=== PATIENT | female | born 1940 | race Two or more races ===

== ENCOUNTER 2020-01-13 14:09 | Inpatient (IN) | payer MEDICARE, OTHER ==
[~2020-01-13] VITALS: Ht 157.5 cm; Wt 56.7 kg
[2020-01-13] MEDS ORDERED: PANTOPRAZOLE 40 MG 10ML VIAL IV ONE (14:26)
[2020-01-13] MEDS ORDERED: SODIUM CHLORIDE 0.9% 1000ML 1,000 ML IV STA (14:26)
[2020-01-13] MEDS ORDERED: VANCOMYCIN 1GM/NS 250 ML 250 ML IV ONE (14:45)
[2020-01-13] MEDS ORDERED: VANCOMYCIN 1GM/NS 250 ML 250 ML ONE (15:02)
[2020-01-13 15:12] LABS: INR 1.35; PROTHROMBIN TIME 17.6 seconds (11.9-14.5)
[2020-01-13 15:25] LABS: ALBUMIN 1.7 g/dL (3.5-5.0); ALBUMIN/GLOBULIN RATIO 0.4 (0.8-2.0); ALKALINE PHOSPHATASE 144 IU/L (40-150); ANION GAP 23.2 mmol/L (8-16); BUN/CREATININE RATIO 38 (6-25); CALCIUM 9.1 mg/dL (8.4-10.2); CARBON DIOXIDE 16 mmol/L (22-29); CHLORIDE 131 mmol/L (98-107); CREATINE KINASE 222 IU/L (29-168); CREATININE, SERUM 4.34 mg/dL (0.57-1.11); EST GLOMERULAR FILTRATION RATE 10 ML/MIN (60-); GLUCOSE 164 mg/dL (74-118); MAGNESIUM 2.8 MG/DL (1.3-2.1)
[2020-01-13 15:30] LABS: ALANINE AMINOTRANSFERASE < 6 IU/L (0-55); BLOOD UREA NITROGEN 164 mg/dL (7-26); SODIUM 165 mmol/L (136-145)
[2020-01-13 15:31] LABS: POTASSIUM 5.2 mmol/L (3.5-5.1)
--- NOTE | 2020-01-13 15:39 | Diagnostic Imaging Report ---
EXAMINATION: Head CT HISTORY: Alteration of consciousness COMPARISON: None. TECHNIQUE: Helical axial images of the head were obtained. Reformatted coronal and sagittal images from the axial data. Dose modulation, iterative reconstruction, and/or weight based adjustment of the mA/kV was utilized to reduce the radiation dose to as low as reasonably achievable. Image quality: Motion/streaking artifact limits the evaluation of the skull base and posterior cranial fossa. FINDINGS: Parenchyma: 1. Scatter and severe confluent supratentorial white matter hypodensities, most likely nonspecific microvascular ischemic changes. 2. Chronic cortical infarct in the right medial occipital lobe (cuneus) and right lateral occipital parietal region. 3. Small age indeterminate, likely chronic lacunar infarcts in the bilateral thalami. 4. No mass or hemorrhage. No CT evidence of acute territorial vascular insult. Extra-axial spaces:No abnormal density. No extra-axial fluid collections Brain volume: Mild to moderate generalized brain volume loss Ventricles: No hydrocephalus or displacement. Arteries: No density suggestive of thrombus. Atherosclerotic calcification of the carotid, vertebrals and basilar arteries. Dural sinuses: No abnormal density. Foramen magnum: No mass, Chiari malformation, or basilar invagination. Sella: No obvious mass. Paranasal/mastoid sinuses: Partial opacification of the sphenoid sinuses with associated thickening/sclerotic bui, likely from chronic inflammatory process. There is also hyperpneumatization and sclerosis of the bilateral mastoid air cells, perhaps sequela from remote inflammatory process as well. Skull/Scalp: No lytic or blastic lesions. No fractures. IMPRESSION: 1. No acute intracranial hemorrhage or cortical infarcts. 2. Severe chronic microvascular ischemic changes, superimposed acute infarct cannot be excluded, if clinical concern remains consider brain MRI without and with contrast for further evaluation. 3. Chronic infarcts in the right occipital and parietal lobes. 4. Small likely chronic lacunar infarcts in the thalami. 5. Opacification of the sphenoid sinuses. Signed by: Dr. Lisa Abreu M.D. on 01/13/2020 3:36 PM
--- NOTE | 2020-01-13 15:53 | Diagnostic Imaging Report ---
Examination: Single AP view of the chest. COMPARISON: None. INDICATION: Altered mental status DISCUSSION: The lung apices are not included on the radiograph. The lungs are otherwise well-inflated and without focal consolidation, sizable effusion, or pneumothorax. Cardiomediastinal contour and pulmonary vasculature are within normal limits when accounting for AP technique. Diffuse osteopenia. No acute osseous abnormality. IMPRESSION: 1. No acute cardiopulmonary abnormalities. Signed by: Dr. Brad Jaeger M.D. on 01/13/2020 3:49 PM
[2020-01-13] MEDS: CEFEPIME 2 GM/NS 0.9% 100 ML 100 ML IV SCH (15:58)
[2020-01-13 16:03] LABS: BASOPHILS % 0.2 % (0.0-1.0); HEMATOCRIT 37.1 % (34.2-44.1); HEMOGLOBIN 10.8 g/dL (12.0-16.0); LYMPHOCYTES # (AUTO) 1.5 (1.0-3.2); LYMPHOCYTES % 17.7 % (18.0-39.1); MEAN CORPUSCULAR HEMOGLOBIN 28.7 pg (28-32); MEAN CORPUSCULAR HGB CONC 29.1 g/dL (31-35); MEAN CORPUSCULAR VOLUME 98.7 fL (81-99); MONOCYTES # (AUTO) 0.5 (0.2-0.8); MONOCYTES % 6.6 % (4.4-11.3); NEUTROPHILS # (AUTO) 6.2 (2.1-6.9); NEUTROPHILS % 75.1 % (38.7-80.0); PLATELET COUNT 258 x10e3/uL (140-360); RED BLOOD COUNT 3.76 x10e6/uL (3.6-5.1); RED CELL DISTRIBUTION WIDTH 20.5 % (11.7-14.4)
[2020-01-13] MEDS ORDERED: SODIUM CHLORIDE 0.9% 500ML 500 ML IV ONE (16:45)
[2020-01-13] MEDS ORDERED: DEXTROSE 5% 1,000 ML IV ONE (17:00)
--- NOTE | 2020-01-13 17:00 | NUR ---
urine collected and sent
[2020-01-13] MEDS ORDERED: ONDANSETRON HCL INJ 2MG/ML 2ML 2 MG/ML VIAL IV PRN (17:15)
--- NOTE | 2020-01-13 17:22 | NUR ---
patient is seen and examined consult [id number]
[2020-01-13] MEDS: SODIUM BICARBONATE 8.4% SYRING 50 ML in DEXTROSE 5% 1,000 ML IV SCH (17:44)
[2020-01-13 17:55] LABS: CLARITY,URINE SL CLOUDY (CLEAR); COLOR,URINE AMBER (YELLOW)
[2020-01-13 17:56] LABS: BILIRUBIN,URINE SMALL (NEGATIVE); KETONES,URINE TRACE (NEGATIVE); LEUKOCYTE ESTERASE ,URINE MODERATE (NEGATIVE); NITRITE,URINE NEGATIVE (NEGATIVE); PROTEIN,URINE DIPSTICK >=300 (NEGATIVE); URINE UROBILINOGEN 0.2 mg/dL (0.2 - 1)
[2020-01-13 18:16] LABS: BACTERIA,URINE MANY /HPF; EPITHELIAL CELLS,URINE FEW /LPF; RBC,URINE 21-50 /HPF (0-5); WBC,URINE (MAN) >50 /HPF (0-5)
--- NOTE | 2020-01-13 19:09 | NUR ---
patient has what appears to be ligature sawant on bilateral lower extremities around the ankles and has bilateral open wounds to smith areas. patient also had bilateral wounds to outer vaginal area noted when placing murphy catheter.
[2020-01-13 19:48] LABS: CREATINE KINASE MB 25.2 ng/mL (0-5.0)
[2020-01-13] MEDS ORDERED: SODIUM CHLORIDE 0.45% 1,000 ML IV ONE (20:15)
[2020-01-13] MEDS ORDERED: DEXTROSE 50% SYRINGE 50 ML IV PRN (21:15)
[2020-01-13] MEDS ORDERED: HYDRALAZINE HCL 20 MG/ML VIAL IV PRN (21:15)
[2020-01-13] MEDS: HEPARIN SOD (PORCINE) 5,000 UNIT/ML VIAL SC SCH (21:56)
[2020-01-13] MEDS: INSULIN REGULAR, HUMAN 100 UNIT/1 ML 3ML VIAL SQ SCH (22:33)
[2020-01-14] VITALS (25 sets, daily range): BP systolic 76–115; BP diastolic 46–89
[2020-01-14] MEDS: SODIUM BICARBONATE 8.4% SYRING 50 ML in DEXTROSE 5% 1,000 ML IV SCH ×2 (02:11→08:24)
[2020-01-14] MEDS: CEFEPIME 2 GM/NS 0.9% 100 ML 100 ML IV SCH (03:42)
--- NOTE | 2020-01-14 04:27 | Consultation ---
DATE OF CONSULTATION: 01/13/2020 Pulmonary and Critical Care Medicine Consult REASON FOR REFERRAL: 1. Abnormal respiratory breathing pattern. 2. Sepsis. HISTORY OF PRESENT ILLNESS: Ms. Newton is a pleasant 79-year-old female with abnormal breathing pattern due to sepsis. The patient with limited medical history due to altered mental status. The patient lives in rehab facility. She was noted with altered mental status. She was obtunded. Due to this finding, she was sent to the emergency room. There are no definite fevers known. The patient noted to have a sodium 165 in the emergency room. 4.3 creatinine with 164 BUN. 8 white count. Chest x-ray with mostly clear lungs. Head CT with no acute changes, but some chronic ischemic changes. She is admitted. Her oxygen saturations are 90% to 93%. PAST MEDICAL HISTORY: Radiographic CVA, hypertension, diabetes, anemia, osteoarthritis. MEDICATIONS: Per electronic medical record. ALLERGIES: NO KNOWN DRUG ALLERGIES. FAMILY HISTORY: Noncontributory to this condition. SOCIAL HISTORY: Unknown history. The patient is currently staying at [facility] half-way [facility]. REVIEW OF SYSTEMS: Cannot get reliably. She has not disclosed. OBJECTIVE: VITAL SIGNS: Afebrile right now. Vital signs noted, reviewed per the chart record. GENERAL: A very poor appearance, chronic, in bed, pale and with cool extremities. HEENT: Normocephalic and atraumatic. NECK: Supple. Throat midline. LUNGS: Bilateral air entry with shallow breathing, limited, rare rhonchi. CARDIOVASCULAR: S1, S2. No murmurs, rubs, or gallops. ABDOMEN: Soft, no definite discomfort noted. EXTREMITIES: No clubbing. No cyanosis. There is 1+ edema of the extremities. INTEGUMENT: No rash. A few bruises. LABORATORY DATA: Labs reviewed per the chart record, include 5.2 potassium, 37 hematocrit, 258 platelets. LFTs mostly unremarkable. 1.35 INR. IMPRESSION AND PLAN: 1. Altered mental status, likely toxic metabolic encephalopathy. The patient reportedly obtunded, now lethargic. 2. Acute kidney failure. 3. Presumed severe sepsis, etiology under investigation. Possibilities could include UTI, unclear if pneumonia or other conditions present. 4. Failure to thrive. 5. History of strokes, radiographic. 6. Hypertonic/spastic left hemiparesis. 7. Hypertension. 8. Diabetes. 9. Anemia by history. 10. Osteoarthritis. 11. Mild hyperkalemia. 12. Metabolic acidosis. initial antibiotics given and ID consulted. Continue serial airway evaluations due to hypoxemia. Aspiration precautions. DVT prophylaxis in place added. Continue evaluation to assess for etiology of infection. Thank you very much, Dr. Lund, for this consult. Please call for questions. MD MARITZA Pulido/MODL /[id number]
[2020-01-14 04:45] LABS: ANION GAP 19.9 mmol/L (8-16); CREATININE, SERUM 3.47 mg/dL (0.57-1.11)
[2020-01-14 04:55] LABS: POTASSIUM 3.9 mmol/L (3.5-5.1)
[2020-01-14 04:56] LABS: CALCIUM 7.7 mg/dL (8.4-10.2)
[2020-01-14] MEDS ORDERED: MIRTAZAPINE7.5 MG PO (05:22)
[2020-01-14] MEDS ORDERED: MELATONIN3 MG PO (05:22)
[2020-01-14] MEDS ORDERED: ADMELOG100 UNIT/1 (05:22)
[2020-01-14] MEDS ORDERED: AMANTADINE100 M1 PO (05:22)
[2020-01-14] MEDS ORDERED: NITROFURANTOIN50 MG PO (05:22)
[2020-01-14] MEDS ORDERED: GABAPENTIN300 MG PO (05:22)
[2020-01-14] MEDS ORDERED: LACTULOSE20 GM/30 M PO (05:22)
[2020-01-14] MEDS ORDERED: DULCOLAX SUPP10 MG RC (05:22)
[2020-01-14] MEDS ORDERED: LISINOPRIL10 MG PO (05:22)
[2020-01-14] MEDS ORDERED: SINEMET CR 50-1 EACH PO (05:22)
[2020-01-14] MEDS ORDERED: METOPROLOL TART25 MG PO (05:22)
[2020-01-14] MEDS ORDERED: ASPIRIN81 MG PO (05:22)
[2020-01-14 06:23] LABS: CREATINE KINASE MB 23.8 ng/mL (0-5.0)
--- NOTE | 2020-01-14 06:47 | NUR ---
Consult called to Dr. Hdz's answering service. Attempted to call lab results to Dr. Quan as he requested, but answering service would only page Dr. Mendez. Answering service said Dr. Quan will take calls after 07:00. No critical lab values so not urgent at this time.
[2020-01-14 06:50] LABS: BASOPHILS % 0.4 % (0.0-1.0); EOSINOPHILS % 0.1 % (0.0-6.0); HEMATOCRIT 33.9 % (34.2-44.1); HEMOGLOBIN 10.1 g/dL (12.0-16.0); LYMPHOCYTES # (AUTO) 1.3 (1.0-3.2); LYMPHOCYTES % 15.5 % (18.0-39.1); MEAN CORPUSCULAR HGB CONC 29.8 g/dL (31-35); MEAN CORPUSCULAR VOLUME 97.4 fL (81-99); MONOCYTES # (AUTO) 0.4 (0.2-0.8); MONOCYTES % 4.6 % (4.4-11.3); NEUTROPHILS # (AUTO) 6.6 (2.1-6.9); NEUTROPHILS % 78.5 % (38.7-80.0); PLATELET COUNT 204 x10e3/uL (140-360); RED BLOOD COUNT 3.48 x10e6/uL (3.6-5.1); RED CELL DISTRIBUTION WIDTH 20.3 % (11.7-14.4)
[2020-01-14] MEDS: INSULIN REGULAR, HUMAN 100 UNIT/1 ML 3ML VIAL SQ SCH ×4 (07:30→21:00)
[2020-01-14] MEDS: HEPARIN SOD (PORCINE) 5,000 UNIT/ML VIAL SC SCH ×2 (08:21→21:00)
--- NOTE | 2020-01-14 08:25 | Diagnostic Imaging Report ---
Examination: Single AP view of the chest. COMPARISON: 01/13/2020 INDICATION: CHF DISCUSSION: The lungs are well inflated. No focal consolidation, pleural effusion, or pneumothorax. Atherosclerotic calcification of the aortic arch. Otherwise normal cardiomediastinal contour for technique. No acute osseous abnormalities. IMPRESSION: No acute cardiopulmonary abnormality. Stable appearance of the chest relative to 01/13/2020. Signed by: Dr. Brad Jaeger M.D. on 01/14/2020 8:21 AM
[2020-01-14] MEDS ORDERED: DEXTROSE 5% 1,000 ML IV ONE ×2 (09:25→09:30)
[2020-01-14] MEDS ORDERED: CEFTRIAXONE SOD 1 GM/NS 50 ML 50 ML IV SCH (10:00)
[2020-01-14 10:10] LABS: BAND NEUTROPHILS % (MANUAL) 12 %; LYMPHOCYTES % (MANUAL) 19 % (19-48); MONOCYTES % (MANUAL) 2 % (3.4-9.0); NEUTROPHILS % (MANUAL) 67 % (40-74); NUCLEATED RED BLOOD CELLS 2
[2020-01-14 10:11] LABS: ANISOCYTOSIS MODERATE; PLATELET ESTIMATE ADEQUATE; PLATELET MORPHOLOGY COMMENT NORMAL; RBC MORPHOLOGY COMMENT ABNORMAL
[2020-01-14 10:12] LABS: OVALOCYTES FEW; POLYCHROMASIA FEW
[2020-01-14 10:13] LABS: SCHISTOCYTES RARE
--- NOTE | 2020-01-14 10:37 | NUR ---
CALLED [facility], THEY HAVE HAD PATIENT FOR APPROXIMATELY 1 WEEK, SHE WAS AT [facility] PRIOR TO COMING TO THEM. THEY STATES SHE HAS NOT BEEN TO HOSPITAL IN A LONG TIME. THE FAMILY STATES RELATED TO DR Noel JOHNSON. DR HOLDEN IS ATTENDING AT [facility]. SHE IS [facility] OVER THERE. WHEN READY FOR DISCHARGE WILL NEED TO SEND CLINICALS AND GET MOT WHEN DISCHARGE IS READY.
[2020-01-14] MEDS ORDERED: SODIUM BICARBONATE 8.4% IV SCH (11:00)
[2020-01-14] MEDS ORDERED: DEXTROSE 5% IV SCH (11:00)
--- NOTE | 2020-01-14 11:45 | NUR ---
Pulmonary and Critical Care Medicine DATE 01/14/2020 SUBJECTIVE: 1 L/min oxygen more arousable today, still sleepy/lethargic mumbles and ?speaks short phrases? more UCX with GNR so far REVIEW OF SYSTEMS: Cannot get reliably. AMS OBJECTIVE: VITAL SIGNS: Vital signs noted, reviewed per the chart record. GENERAL: poor appearance, chronic, in bed, pale HEENT: Normocephalic and atraumatic. NECK: Supple. Throat midline. LUNGS: Bilateral air entry with shallow breathing, rare rhonchi. CARDIOVASCULAR: S1, S2. No murmurs, rubs, or gallops. ABDOMEN: Soft, no definite discomfort significant EXTREMITIES: No clubbing. No cyanosis. trace edema INTEGUMENT: No rash. A few bruises. LABORATORY DATA: k 3.9, cr 3.47, bun 148, wbc 8.4, hct 34, plt 204 IMPRESSION AND PLAN: 1. Altered mental status, toxic metabolic encephalopathy. 2. Acute kidney failure. 3. Severe sepsis/multiorgan dysfunction syndrome. Suspect GNR UTI present on admit. Unclear if other conditions present. 4. Failure to thrive. 5. Hx strokes, radiographic. 6. Hypertonic/spastic left hemiparesis. 7. Hypertension. 8. Diabetes. 9. Anemia by history. 10. Osteoarthritis. 11. Mild hyperkalemia. 12. Metabolic acidosis. 13. Parkinsons 14. multiple decubiti, NOS. present on admit. Continue antibiotics per ID Follow cultures Continue serial airway evaluations due to hypoxemia. ?better Aspiration precautions. Consider tube feeding over the next 24 hrs DVT prophylaxis Renal resuscitation Thank you very much, Dr. Lund, for this consult. Please call for questions.
--- NOTE | 2020-01-14 13:04 | NUR ---
Nutrition Intervention Note RD Recommendation(s) for Physician: - Recommend DHT placement and initiate TF of Nepro at 10 ml/hr. Slowly advance as tolerated to goal rate of 35 ml/hr (to provide 1512 kcal and 68 gm protein). - Water flushes and fluid management per MD. - Please check BMP with Mg and Phos daily, replace low lytes as needed- pt at risk for refeeding syndrome. Plan of Care: RD following, monitoring for tolerance and adequacy Nutrition reason for involvement: Nutrition Risk Trigger RD Assessment 01/13: 79 YOF admitted for AMS, dehydration, and FTT. Pt evaluated today per MST screen. Pt admitted for SNF, no hx available and pt with AMS. Pt discussed during am rounds, per RN pt with wounds on arrival and plan for PEG placement. Pt currently on isolation precautions. TF rec's provided. Chart reviewed. Will continue to monitor. Principal Problems/Diagnoses: AMS, dehydration, failure to thrive PMH: DMII, CKD3, CVA, OA GI: LBM 01/13 x 2 Skin: several wounds per RN, no skin assessment in chart Labs: 01/13: Na 153, K 3.9, BUN 148, K 3.47, Gluc 251, POC Gluc 159-226 Meds: abx, insulin, heparin, Na bicarb, zofran Ht: 62 in Wt: 127 lb BMI: 23.2 kg/m2 IBW: 110 lb Malnutrition Evaluation (01/14/20) The patient does not meet criteria for a specified degree of malnutrition at this time. Will re-evaluate at follow-up as appropriate. CHARLES, no SNF records, pt with AMS, currently on droplet isolation precautions. Energy intake: CHARLES Weight loss: CHARLES Fat loss: CHARLES Muscle loss: CHARLES Supporting Evidence: Fluid accumulation: unable to evaluate Functional Status: unable to evaluate Nutrition Prescription (Diet Order): NPO Estimated Nutritional Needs: [id number] calories/day (25-30 kcal/kg CBW) 58-87 g protein/day (1-1.5 g pro/kg CBW)- adjust per renal function Diet Adequacy: Not meeting calorie needs, Not meeting protein needs Diet Tolerance: tolerance pending Diet Education Needs Assessment: Diet education not indicated, patient on temporary/transition diet. Nutrition Care Level: high Nutrition Diagnosis: Inadequate energy and protein intake related to current medical conditions (failure to thrive, AMS, hx of CVA) as evidenced by dehydration, possible malnutrition, and pending PEG placement Goal: Patient will meet 75-100% of estimated needs by follow up Progress: N/A Interventions: - Composition, Rate, Route, IVF, Recommended Modifications, Multivitamin/mineral supplement therapy, Collaboration with other providers Monitoring/Evaluation: - Total energy intake, Total protein intake, Formula/Solution, Prescription medication, Weight change Signed: Felicia Castellanos RD, LD, CNSC
--- NOTE | 2020-01-14 13:34 | NUR ---
WOUND CARE CONSULT FOR 79 YO FEMALE HX OF AMS, DEHYDRATION ,FTT CURTIS 11 ON STRICT PUP STATUS AND INTERVENTIONS AND ALTERNATING PRESSURE MATTRESS LABS: WBC-8.24 HGB_10.8 GLUCOSE-251 SKIN ASSESSMENT COMPLETE PATIENT PRESENTS WITH VERY THIN AND FRAILE SKIN SECONDARY TO DEHYDRATION , NUTRITIONAL DEFICIT AND DEBILITATION MULTIPLE WOUND AREAS CHARACTERISTICS AND MEASUREMENTS DOCUMENTED ON WOUND ASSESSMENT FORM RECOMMENDATIONS: NURSING TO CONTINUE TO MAINTAIN STRICT PUP STATUS AND INTERVENTIONS AND ALTERNATING PRESSURE MATTRESS NURSING TO CONTINUE TO ASSIST PATIENT NEEDED WITH MEALS AND NUTRITIONAL SUPPLEMENTS TO ENSURE PROPER REQUIREMENTS FOR HEALING NURSING TO CONTINUE TO OFFLOAD FEET AND HEELS NEEDED WITH PILLOW SUSPENSION WHEN IN BED NURSING TO CLEAN DTI AREAS TO BACK ,SACRUM, LEFT HIP WITH NORMAL SALINE DAILY AND APPLY VENELEX OINTMENT AND ALLEVYN FOAM DRESSING NURSING TO CLEAN DTI AREAS TO BILATERAL SIDES OF BATSHEVA AREAS , RIGHT LOWER LEG AND FOOT ,RIGHT HEEL, LEFT KNEE LEFT DORSAL ANKLE WITH NORMAL SALINE DAILY AND APPLY VENELEX OINTMENT AND LEAVE OPEN TO AIR PROTECT AND OFFLOAD Addendum: 01/14/20 at 1350 by Gildardo Horton RN Amended: Links added.
[2020-01-14] MEDS ORDERED: ALBUMIN 5% 0.05 GM/ML BTL IV ONE (15:45)
--- NOTE | 2020-01-14 15:54 | Progress Note ---
DATE: SUBJECTIVE: Ms Newton remains in intensive care unit and noncommunicative. She seemed little bit bitter today, more alert. Her blood cultures are still pending, but her urine culture showing gram-negative rods. Her white count is still pending. Sodium was 153 with a creatinine 3.7. Her white count is 8.7 and hemoglobin of 10. MEDICATION LIST: Reviewed. She is currently on Rocephin. PHYSICAL EXAMINATION: GENERAL: She is noncommunicative. VITALS: Stable, afebrile. HEENT: She is not icteric. NECK: Supple. CHEST: Few crackles bilateral. COR: S1 and S2. No S3, S4. ABDOMEN: Soft. IMPRESSION: 1. Sepsis on admission, concerned about aspiration pneumonia, clinically better with Rocephin. Cultures still pending. Await urine cultures. 2. Urinary tract infection. 3. Acute on chronic kidney disease. 4. Dehydration. 5. Malnutrition, plan for her to have a PEG tube, once her electrolytes are corrected. 6. Multiple pressure ulcers, continue local care. 7. We will follow with you. Further recommendation depending on clinical progress. MD THUY Arias/SHELBY /[id number]
[2020-01-14 15:56] LABS: ANION GAP 23.4 mmol/L (8-16); CALCIUM 7.4 mg/dL (8.4-10.2); CREATININE, SERUM 2.94 mg/dL (0.57-1.11); POTASSIUM 3.4 mmol/L (3.5-5.1)
[2020-01-14] MEDS ORDERED: ALBUMIN 5% 250ML 500 ML IV ONE (16:00)
--- NOTE | 2020-01-14 16:13 | Diagnostic Imaging Report ---
EXAM: Renal Ultrasound INDICATION: Acute kidney injury COMPARISON: None TECHNIQUE: Transverse and longitudinal images of the kidneys and bladder were obtained. FINDINGS: Right Kidney: Length: 8.6 cm Appearance: Normal echogenicity. Collecting system: No hydronephrosis Stones: None Cyst/Mass: None Left Kidney: Length: 8.0 cm Appearance: Normal echogenicity. Collecting system: No hydronephrosis Stones: None Cyst/Mass: None Bladder: Salmon catheter terminates in the bladder. IMPRESSION: No hydronephrosis or renal calculi. Signed by: Whitney Conner MD on 01/14/2020 4:09 PM
[2020-01-14 16:20] LABS: CREATINE KINASE MB 9.6 ng/mL (0-5.0)
--- NOTE | 2020-01-14 16:50 | Consultation ---
DATE OF CONSULTATION: 01/14/2020 HISTORY OF PRESENT ILLNESS: History predominantly from medical result, record, etc., and ER notes. Apparently, 79-year-old female referred here for altered mental status, has been poor mental state for a long time. Apparently was at [facility]. The patient received some IV fluids, but has apparently not eaten or drank in several weeks. Apparently, there were plans for a PEG tube placement, but then she was referred here to the hospital with altered mental status, failure to thrive, and dehydration. She was found to have significant hypernatremia and she had a blood test done in [facility], which also showed hypernatremia, which is one of the reason why she was referred here. Her initial serum sodium was 165 with a potassium 5.2, chloride 131, bicarbonate 16, anion gap 23, creatinine of 4.3, BUN 164, magnesium 2.8, and calcium 9.1. Total protein 5.9, globulin 4.2, and albumin 1.7. Total bilirubin 0.5. CK 222. Troponin I 0.267. The patient was hydrated in the emergency room. Discussed with Dr. Eller earlier and currently on IV bicarb. Has made urine but not encouraging about 175 mL last night. She remains poorly responsive. She is unable to follow any commands to review of systems. She has some dried ulcers noted on heels and lower extremity. Nurses suspect the patient may have been on restraints nevertheless. LABORATORY DATA: Today's labs; sodium 153, potassium 3.9, chloride 124, bicarbonate 13, anion gap 20, BUN 148, and creatinine 3.47. White count 8.4 and hemoglobin 10.1. Had a urinalysis done, specific gravity 1.015. Dipstick positive proteins with 21 to 52 rbc's, more than 50 wbc's. Cultures; urine and blood cultures are pending so far. ALLERGIES: TO NO APPARENT DRUG ALLERGIES. CURRENT MEDICATIONS: The patient is on ondansetron p.r.n., insulin, heparin subcutaneous, received one time dose of vancomycin, cefepime 2 g IV q.12, which I will change to 1 g IV q.12. Currently on D5, 50 mEq sodium bicarbonate 125 an hour. Relatively hypotensive in the ED, systolic in the 90s. Had a brain CT done, please see official report, shows no acute intracranial hemorrhage or cortical infarcts, severe chronic microvascular ischemic changes, chronic infarcts in the right occipital and parietal lobes. Chest x-ray, no acute cardiopulmonary abnormalities. As I said blood and urine cultures have been sent. Her COVID test is pending. PHYSICAL EXAMINATION: GENERAL: The patient is lying supine. VITAL SIGNS: Blood pressure 94/66, pulse rate 93, and oxygen saturation 98% on 4 L nasal cannula. HEAD AND NECK: Arcus senilis noted. No apparent icterus. Dry skin, dry mucosa, whatever I could examine. Neck veins are flat. LUNGS: Relatively clear. No rales or rhonchi. HEART: S1 and S2 audible. ABDOMEN: Otherwise soft and nontender. EXTREMITIES: Lower extremity, no edema. IMPRESSION AND PLAN: Severe dehydration, acute kidney injury, severe hypernatremia, hyperosmolar state with high anion gap metabolic acidosis. Urinalysis suggestive of possible urinary tract infection and cystitis. Nonoliguric fortunately. Serum creatinine improved with IV hydration. Plan to give initial 2 L D5 water IV bolus and titrate the bicarb to 75 mEq, D5 water at 80 mL an hour. Continue to monitor the patient's electrolytes. Repeat labs ordered. I will discontinue cefepime. Start ceftriaxone. Consult Infectious Disease. Nurse to call with repeat labs. No family available. She will definitely benefit from PEG tube placement once stable. MD SARAH Salcido/SHELBY /[id number]
[2020-01-14] MEDS: SODIUM BICARBONATE 8.4% 150 ML in STERILE WATER IV SOLN 1,000 ML IV SCH (17:06)
[2020-01-14] MEDS: NOREPINEPHRINE INJ 4MG/4ML 8 MG in DEXTROSE 5% 250ML 250 ML IV PRN (17:15)
--- NOTE | 2020-01-14 18:50 | Consultation ---
DATE OF CONSULTATION: 01/13/2020 HISTORY OF PRESENT ILLNESS: The patient was seen and examined on January 12 in the afternoon. She is an 79-year-old [place] female, complicated medical history, comes in from [facility], past history of CVA, hypertension, diabetes mellitus, anemia, osteoarthritis, and multiple hospitalization, who has problem with nutrition and multiple pressure ulcers, comes in with altered mental status and shortness of breath. Came to emergency room. In the emergency room, she was hypoxemic. Discussed with ER physician. The patient does not provide any meaningful information. History was taken mainly from the chart. Please refer to the orders with ER physician, as I was there talking to him and assessing the patient. LABORATORY STUDIES: When she first came, her white count was 8.24 and hemoglobin 10.8. Sodium 153, potassium 3.9 with creatinine 3.47. PHYSICAL EXAMINATION: GENERAL: She is noncommunicative, lethargic. VITAL SIGNS: Stable, afebrile. HEENT: She is not icteric. NECK: Supple. CHEST: Few crackles. HEART: S1 and S2. No S3, S4, or murmurs. ABDOMEN: Soft. Bowel sounds present. No tenderness. EXTREMITIES: No edema. SKIN: No rash. Laboratory data reviewed. By the time this was dictated, her COVID-19 was negative. IMPRESSION: 1. Sepsis on admission, concerned about aspiration pneumonia, concerned about pyelonephritis. Agree with blood cultures and urine cultures. We will put the patient on meropenem and vancomycin, adjust for kidney function. 2. Wpwvo-mg-aoxsfmx kidney disease. 3. Hypernatremia, concerned about dehydration. 4. Malnutrition. 5. Multiple pressure ulcers. Recommend local care. 6. History of cerebrovascular accident, history of encephalopathy. Further recommendations to follow. MD THUY Arias/SHELBY /[id number]
--- NOTE | 2020-01-14 19:30 | NUR ---
Procedure note Procedure: 1. CVC placement 2. US guidance indication: medication administration consent: informed, from son anesthesia: lidocaine 1% 5 cc findings: Sterile prep and drape. Local anesthesia given. Subclavian attempted due to spastic neck rotation, and right IJ in place with sizeable bandage. 2 tries at left subclavian, but due to small frame only limited needle depth performed. Not successful. Thereafter, US guidance utilized to advance needle into left IJ, anterior-inferior approach. After IJ was noted with blood return, reverse seldinger technique used to place 3 lumen catheter. Suture in place. Mild oozing at insertion site, 1 additional suture placed at site around the catheter and loosely sutured. EBL: 8 cc complications: none
--- NOTE | 2020-01-14 19:44 | NUR ---
Dr. Schneider ordered d5W boluses x2. Wound care came to evaluate pt's wounds. Pt's son called and asking to have visitors and Dr. Lund call him for update. Son made aware of current visitation policy. Dr. Lund informed to talk with son. CNO informed of son wanting pt to have an out of town visitor. BMP ordered for 1500. Dr. Schneider informed of lab results. Pt becoming hypotensive, dr. schneider informed Albumin ordered. Dr. Dela Cruz aware of hypotension, orders given to consent pt for central line insertion. Telephone consent done with Zack RN and primary RN with pt's son. Dr. Dela Cruz at bedside to insert central line. LIJ inserted. Time out done. Chest x ray ordered to verify placement. Report given to darinel ELIZABETH.
--- NOTE | 2020-01-14 19:46 | Diagnostic Imaging Report ---
EXAMINATION: CHEST SINGLE (PORTABLE) COMPARISON: Chest x-ray 0533 hours INDICATION: ^central line ^[id number] ^[id number] DISCUSSION: Frontal view of the chest obtained at 1930 hours. HEART AND MEDIASTINUM: The cardiomediastinal silhouette is unremarkable. LINES: Left IJ catheter terminates in the brachiocephalic vein. No pneumothorax. LUNGS/PLEURA: Stable pulmonary hyperinflation. No pneumonia or pulmonary edema. No pleural effusion or pneumothorax. BONES AND SOFT TISSUES: No focal osseous lesion. The soft tissues are normal. IMPRESSION: Left IJ catheter terminates in the brachiocephalic vein without pneumothorax. No new cardiothoracic process. Signed by: Dr. Alton Lakhani MD on 01/14/2020 7:43 PM
--- NOTE | 2020-01-14 20:15 | NUR ---
Dr. Hdz notified of pt's positive blood cultures and urine culture. New antibiotic orders noted. See eMAR.
--- NOTE | 2020-01-14 20:55 | NUR ---
Dr. Dela Cruz rounding, states central line is ok to use per xray.
[2020-01-14] MEDS ORDERED: CEFEPIME 1GM/NS 0.9% 50 ML 50 ML IV SCH (21:00)
[2020-01-14] MEDS ORDERED: VANCOMYCIN 1GM/NS 250 ML 250 ML IV SCH (22:00)
[2020-01-15] VITALS (19 sets, daily range): BP systolic 89–121; BP diastolic 46–62
[2020-01-15 06:15] LABS: BASOPHILS # (AUTO) 0.1 (0.0-0.1); BASOPHILS % 0.5 % (0.0-1.0); EOSINOPHILS % 0.2 % (0.0-6.0); HEMATOCRIT 23.6 % (34.2-44.1); HEMOGLOBIN 7.6 g/dL (12.0-16.0); LYMPHOCYTES % 16.2 % (18.0-39.1); MEAN CORPUSCULAR HEMOGLOBIN 28.8 pg (28-32); MEAN CORPUSCULAR HGB CONC 32.2 g/dL (31-35); MEAN CORPUSCULAR VOLUME 89.4 fL (81-99); MONOCYTES # (AUTO) 0.3 (0.2-0.8); MONOCYTES % 2.2 % (4.4-11.3); NEUTROPHILS # (AUTO) 9.7 (2.1-6.9); NEUTROPHILS % 79.8 % (38.7-80.0); PLATELET COUNT 167 x10e3/uL (140-360); RED BLOOD COUNT 2.64 x10e6/uL (3.6-5.1); RED CELL DISTRIBUTION WIDTH 18.2 % (11.7-14.4)
[2020-01-15 06:25] LABS: ALBUMIN/GLOBULIN RATIO 0.8 (0.8-2.0); ANION GAP 16.9 mmol/L (8-16); CALCIUM 7.4 mg/dL (8.4-10.2); CREATININE, SERUM 2.09 mg/dL (0.57-1.11)
[2020-01-15 06:29] LABS: POTASSIUM 2.9 mmol/L (3.5-5.1)
--- NOTE | 2020-01-15 06:42 | NUR ---
Page out to Dr. Kameron Lund regarding critical potassium
[2020-01-15] MEDS: INSULIN REGULAR, HUMAN 100 UNIT/1 ML 3ML VIAL SQ SCH ×4 (07:30→21:00)
[2020-01-15 07:59] LABS: ANISOCYTOSIS MODERATE; BAND NEUTROPHILS % (MANUAL) 2 %; ELLIPTOCYTE, RBC SLIGHT; LYMPHOCYTES % (MANUAL) 16 % (19-48); MONOCYTES % (MANUAL) 1 % (3.4-9.0); MYELOCYTES % (MANUAL) 2 % (0-0); NEUTROPHILS % (MANUAL) 79 % (40-74); NUCLEATED RED BLOOD CELLS 1; OVALOCYTES FEW
[2020-01-15 08:00] LABS: PLATELET ESTIMATE ADEQUATE; RBC MORPHOLOGY COMMENT NORMAL
[2020-01-15 08:01] LABS: PLATELET MORPHOLOGY COMMENT NORMAL
--- NOTE | 2020-01-15 09:43 | Diagnostic Imaging Report ---
X-ray chest AP portable Comparison: 01/14/2020 History: R2 mental status Findings: No change in cardiomediastinal findings. Left IJ central venous catheter with the tip overlying the left innominate vein. No pleural effusion. No pneumothorax. No change in axial interstitial prominence bilateral central lung harris. No acute changes in the visualized skeleton and upper abdomen. Impression: No significant change. Signed by: Timi Webb MD on 01/15/2020 9:39 AM
[2020-01-15] MEDS ORDERED: POTASSIUM CHLORIDE 20MEQ/100ML 300 ML IV ONE (10:30)
[2020-01-15] MEDS: SODIUM BICARBONATE 8.4% 150 ML in STERILE WATER IV SOLN 1,000 ML IV SCH (11:56)
[2020-01-15] MEDS: BALSAM PERU/CASTOR OIL 60 GM OINT...G. TP SCH (11:57)
[2020-01-15] MEDS: HEPARIN SOD (PORCINE) 5,000 UNIT/ML VIAL SC SCH ×2 (11:58→21:00)
--- NOTE | 2020-01-15 12:48 | NUR ---
Pulmonary and Critical Care Medicine DATE 01/15/2020 SUBJECTIVE: 100% sat RA fio2 bicarbonate IV drip 80/hr levophed 5/hr BCX GPC clusters UCX Proteus REVIEW OF SYSTEMS: Cannot get reliably. AMS OBJECTIVE: VITAL SIGNS: Vital signs noted, reviewed per the chart record. GENERAL: poor appearance, chronic, in bed, pale HEENT: Normocephalic and atraumatic. NECK: Supple. Throat midline. LUNGS: Bilateral air entry with shallow breathing, rare rhonchi. CARDIOVASCULAR: S1, S2. No murmurs, rubs, or gallops. ABDOMEN: Soft, no definite discomfort significant, mild nonspecific discomfort? EXTREMITIES: No clubbing. No cyanosis. trace edema INTEGUMENT: No rash. A few bruises. LABORATORY DATA: k 2.9, cr 2.09, hco3 20. wbc 12, hct 24, plt 167 IMPRESSION AND PLAN: 1. Altered mental status, toxic metabolic encephalopathy. 2. Acute kidney failure. 3. Severe sepsis/multiorgan dysfunction syndrome. --Proteus UTI present on admit. --Unclear if other conditions present. 4. Failure to thrive. 5. Hx strokes, radiographic. 6. Hypertonic/spastic left hemiparesis. 7. Hypertension. 8. Diabetes. 9. Anemia by history. 10. Osteoarthritis. 11. Mild hyperkalemia. 12. Metabolic acidosis. 13. Parkinsons 14. multiple decubiti, NOS. present on admit. Continue antibiotics per ID Follow cultures to final Continue serial airway evaluations due to hypoxemia. ?better Aspiration precautions. start tube feeding , try glucerna DVT prophylaxis Renal resuscitation, k repletion Thank you very much, Dr. Lund, for this consult. Please call for questions.
--- NOTE | 2020-01-15 16:04 | Diagnostic Imaging Report ---
X-ray chest/abdomen one view History: Nasogastric tube placement Findings: A nasogastric tube is seen coursing down the expected past with the tip in the side hole overlying the left upper quadrant of abdomen. The tube is looped in the oral cavity needs to be adjusted. Other incidental findings include left IJ central venous catheter and a triangular left mid to lower lung zone opacity which was not seen previously and could be extraneous. Impression: Nasogastric tube tip and sidehole in the left upper quadrant of abdomen. The tube is looped in the mouth and needs to be adjusted. Signed by: Timi Webb MD on 01/15/2020 4:01 PM
[2020-01-15] MEDS: MEROPENEM 500MG/ NS 50ML 50 ML IV SCH (16:57)
--- NOTE | 2020-01-15 17:13 | Progress Note ---
DATE: SUBJECTIVE: Ms. Newton remains in intensive care unit. Her blood cultures showing Staph aureus. Urine showed ESBL. PHYSICAL EXAMINATION: GENERAL: She is noncommunicative. VITAL SIGNS: Stable, afebrile. HEENT: She is not icteric. NECK: Supple. CHEST: Clear. COR: S1 and S2. No S3, S4, or murmurs. ABDOMEN: Soft. Bowel sounds present. No tenderness. EXTREMITIES: No edema. SKIN: No rash. IMPRESSION: Sepsis present on admission, bacteremia present on admission, urinary tract infection with multidrug-resistant, metabolic encephalopathy, failure to thrive, and history of stroke. Continue vancomycin. We will change her to meropenem. Recheck blood culture. Obtain echocardiogram. We will follow. MD THUY Arias/SHELBY /[id number]
--- NOTE | 2020-01-15 20:26 | Diagnostic Imaging Report ---
Abdomen/KUB INDICATION: ^NG tube placement ^[id number] ^[id number] COMPARISON: Chest x-ray 1516 hours. FINDINGS: Portable, supine image obtained at 1940 hours. The right hemiabdomen is not included on this image. Medical Devices: Multiple EKG wires are looped in the left upper quadrant and lower left chest. Enteric tube is looped in the proximal stomach. Bowel: Gaseous dilatation of the right colon and proximal transverse colon without pneumatosis. The descending colon is collapsed. Distended small bowel loops measure up to 2.1 cm without pneumatosis Free air: None Abdominal calcifications: Coarse pelvic calcifications suggestive of phleboliths. Organomegaly: None Lung bases: Diffuse pulmonary hyperinflation. Small left pleural effusion Bones: Diffusely demineralized. Degenerative changes throughout the thoracolumbar spine. No focal osseous lesions. IMPRESSION: 1. Enteric tube is looped in the proximal stomach. 2. Gaseous distention of the bowel (large bowel greater than small bowel) suggestive of ileus. Signed by: Dr. Alton Lakhani MD on 01/15/2020 8:23 PM
[2020-01-15] MEDS ORDERED: NOREPINEPHRINE 8 MG/D5W 250 ML 250 ML ONE (22:15)
[2020-01-15] MEDS: NOREPINEPHRINE INJ 4MG/4ML 8 MG in DEXTROSE 5% 250ML 250 ML IV PRN (22:18)
--- NOTE | 2020-01-15 22:31 | Diagnostic Imaging Report ---
EXAM: Abdomen Radiograph 1 View(s) INDICATION: Enteric tube, verify position. COMPARISON: Abdominal radiograph 01/15/2020 FINDINGS: Bibasilar haziness. Aortic calcifications. Enteric tube tip projects in the left upper abdomen. Partially visualized left internal jugular central venous catheter, tip at the left innominate/superior vena cava junction. Dilated loops of small bowel. No abnormal abdominal calcifications.. No abnormal soft tissue masses. No pneumoperitoneum. No acute osseous abnormality. Degenerative changes in the lumbar spine and pelvis. IMPRESSION: Enteric tube tip projects in the left upper abdomen. Dilated loops of small bowel can be due to small bowel obstruction or ileus. Signed by: Manolo Singh DO on 01/15/2020 10:28 PM
--- NOTE | 2020-01-15 22:39 | NUR ---
Spoke to Dr. Zafar Lund regarding KUB showing possible small bowel obstruction or illeus. Ordered to not start tube feeding at this time and repeat KUB in AM. Addendum: 01/16/20 at 0344 by Mark Cuevas RN Ordered to put NGT to LIS.
[2020-01-16] VITALS (26 sets, daily range): BP systolic 95–117; BP diastolic 47–90
[2020-01-16] MEDS: SODIUM BICARBONATE 8.4% 150 ML in STERILE WATER IV SOLN 1,000 ML IV SCH ×3 (01:13→21:22)
[2020-01-16] MEDS: MEROPENEM 500MG/ NS 50ML 50 ML IV SCH ×2 (03:57→16:44)
[2020-01-16 06:25] LABS: BASOPHILS # (AUTO) 0.1 (0.0-0.1); BASOPHILS % 0.4 % (0.0-1.0); EOSINOPHILS % 0.1 % (0.0-6.0); HEMATOCRIT 23.5 % (34.2-44.1); HEMOGLOBIN 7.8 g/dL (12.0-16.0); LYMPHOCYTES # (AUTO) 1.3 (1.0-3.2); LYMPHOCYTES % 8.5 % (18.0-39.1); MEAN CORPUSCULAR HGB CONC 33.2 g/dL (31-35); MEAN CORPUSCULAR VOLUME 87.4 fL (81-99); MONOCYTES # (AUTO) 0.3 (0.2-0.8); MONOCYTES % 1.6 % (4.4-11.3); NEUTROPHILS # (AUTO) 13.3 (2.1-6.9); NEUTROPHILS % 87.6 % (38.7-80.0); PLATELET COUNT 153 x10e3/uL (140-360); RED BLOOD COUNT 2.69 x10e6/uL (3.6-5.1); RED CELL DISTRIBUTION WIDTH 18.2 % (11.7-14.4)
[2020-01-16 06:55] LABS: ALBUMIN 1.7 g/dL (3.5-5.0); ALBUMIN/GLOBULIN RATIO 0.6 (0.8-2.0); ANION GAP 16.5 mmol/L (8-16); CALCIUM 7.1 mg/dL (8.4-10.2); CREATININE, SERUM 1.52 mg/dL (0.57-1.11); POTASSIUM 3.5 mmol/L (3.5-5.1)
--- NOTE | 2020-01-16 07:21 | Diagnostic Imaging Report ---
EXAM: Abdomen 2 Views INDICATION: ^ileus/SBO ^[id number] ^[id number] COMPARISON: 01/15/2020 FINDINGS: Mild gaseous distention of small bowel loops, slightly decreased from prior exam. No signs of pneumoperitoneum. No calcification overlying renal shadows. No acute osseous abnormality. Degenerative changes of spine. IMPRESSION: Persistent obstructive bowel gas pattern, although slightly improved when compared to prior x-ray. Signed by: Dr. Kennedy Jenkins MD on 01/16/2020 7:17 AM
[2020-01-16] MEDS: INSULIN REGULAR, HUMAN 100 UNIT/1 ML 3ML VIAL SQ SCH ×4 (07:30→21:00)
[2020-01-16] MEDS: HEPARIN SOD (PORCINE) 5,000 UNIT/ML VIAL SC SCH ×2 (08:04→21:27)
[2020-01-16] MEDS: BALSAM PERU/CASTOR OIL 60 GM OINT...G. TP SCH (08:05)
--- NOTE | 2020-01-16 10:21 | Progress Note ---
DATE: 01/16/2020 Nephrology Followup Note SUBJECTIVE: The patient was resting comfortably, in no acute distress. OBJECTIVE: VITAL SIGNS: I's and O's 1260 in and 1225 out. Blood pressure 109/67, respirations 20, heart rate 105. CHEST: Revealed fair air entry with occasional crackles. HEART: S1, S2. ABDOMEN: Soft. EXTREMITIES: No significant edema. EXPLOSIVE SPECIALIST: She was sleeping. LABORATORY DATA: White count 15.1 from 12.2 yesterday, hemoglobin 7.8 from 7.6 yesterday, platelet count of 153, stable. Chemistry; sodium 145, potassium 3.5, chloride 103, CO2 29, BUN 103, creatinine 1.5, both improved from yesterday. Chest x-ray from yesterday did not show any acute pathology and no significant change. IMPRESSION: 1. Acute kidney injury with improving serum creatinine at 1.5 with good urine output, and stable electrolytes, and metabolic profile, and volume status. 2. Failure to thrive. 3. Urinary tract infection and Staph aureus sepsis, on appropriate antibiotics. PLAN: Continue present treatment. No acute indication for dialysis. Check labs in the morning. Further recommendations to follow. Nicko Aparicio MD SA/SHELBY /[id number]
--- NOTE | 2020-01-16 13:02 | NUR ---
Dr Hdz conferenced with patient's son who then conferred with his family and decision made for DNAR code status.
[2020-01-16] MEDS: VANCOMYCIN 1GM/NS 250 ML 250 ML IV SCH (13:20)
--- NOTE | 2020-01-16 13:47 | Progress Note ---
DATE: 01/16/2020 CHIEF COMPLAINT/HISTORY OF PRESENT ILLNESS: This 79-year-old [place] woman, whose primary chief diagnosis is adult failure to thrive, multiple decubitus ulcers, and anemia secondary to chronic disease. The patient underwent abdominal x-ray early this morning, which revealed persistent obstructive bowel gas pattern, possibly technical support representative of a small bowel obstruction. The patient's hemoglobin today is 7.8 g/dL. White blood cell count today is 15,100 with 87% segmented neutrophils. The patient's BUN and creatinine today is 103 and 1.52 respectively. On admission, the patient's BUN and creatinine were 164 and 4.34 respectively. Urine culture reveals Proteus mirabilis, ESBL bacterial species. Blood cultures reveal MRSA bacterial species. The patient underwent transthoracic echocardiogram on January 15, 2020, which did not reveal any obvious vegetation. REVIEW OF SYSTEMS: Review of systems as per HPI. PHYSICAL EXAMINATION: GENERAL: She is bed-bound, multiple decubitus ulcers in the bilateral heels, perineal and sacral area. VITAL SIGNS: Height 5 feet 2 inches, weight 127 pounds, BMI 23, pulse 106, respiratory rate 26, blood pressure 110/56, temperature 97.9, oxygen saturation 100% on room air. INTEGUMENT: Skin is warm and dry. Slight pallor, jaundice, or diaphoresis. The patient has numerous decubital ulcers as previous stated specifically in the sacral, perineal and bilateral heel area. HEENT: Anterior sclerae with moist mucous membranes. NECK: Supple. CARDIOVASCULAR: Tachycardic rate and regular rhythm. LUNGS: Crackles bilaterally. ABDOMEN: Slightly distended with hyperactive bowel sounds. EXTREMITIES: No edema. NEUROLOGIC: She is bedbound. DIAGNOSES: 1. Proteus mirabilis extended-spectrum beta-lactamases urinary tract infection. 2. Methicillin-resistant Staphylococcus aureus bacteremia. 3. Adult failure to thrive. 4. Multiple decubitus ulcers. 5. Anemia secondary to chronic disease. 6. Parkinson disease. 7. Severe protein calorie malnutrition. 8. Acute renal failure secondary to acute tubular necrosis, resolving. PLAN: 1. Continue intravenous antibiotics for patient's MRSA and bacteremia. 2. Continue Zyvox for the patient's proteus mirabilis ESBL urinary tract infection. 3. We discussed code status with family. 4. Palliative treatment in the form of hospice care is very appropriate. 5. Follow hemoglobin and hematocrit. 6. Follow renal function. 7. Continue intravenous fluids. I spent 25 minutes in the care of this critically ill patient. MD BARBARA Ordonez/SHELBY /[id number] MTDAngel
--- NOTE | 2020-01-16 14:42 | NUR ---
Pulmonary and Critical Care Medicine DATE 01/16/2020 SUBJECTIVE: NGT in place tube feeds on hold while abdomen being investigated bicarb iv at 80/hr levophed 4/ murphy with UOP REVIEW OF SYSTEMS: Cannot get reliably. AMS OBJECTIVE: VITAL SIGNS: Vital signs noted, reviewed per the chart record. GENERAL: poor appearance, chronic, in bed, pale HEENT: Normocephalic and atraumatic. NECK: Supple. Throat midline. LUNGS: Bilateral air entry with shallow breathing, rare rhonchi. CARDIOVASCULAR: S1, S2. No murmurs, rubs, or gallops. ABDOMEN: Soft, no definite discomfort significant, mild nonspecific discomfort? EXTREMITIES: No clubbing. No cyanosis. trace edema INTEGUMENT: No rash. A few bruises. LABORATORY DATA: k 3.5, cr 1.52, wbc 15, hct 24, plt 153 IMPRESSION AND PLAN: 1. Altered mental status, toxic metabolic encephalopathy. 2. Acute kidney failure. 3. Severe sepsis/multiorgan dysfunction syndrome. --Proteus UTI ESBL present on admit. --MRSA bacteremia 4. Failure to thrive. 5. Hx CVA, radiographic. 6. Hypertonic/spastic left hemiparesis. 7. Hypertension. 8. Diabetes. 9. Anemia by history. 10. Osteoarthritis. 12. Parkinsons 13. multiple decubiti, NOS. present on admit. DTI and stage IIs Continue antibiotics per ID Follow cultures to final Continue serial airway evaluations due to hypoxemia. ?better Aspiration precautions. start tube feeding when ok with GI, glucerna DVT prophylaxis Renal resuscitation continue Family to decide further on advance directives/ care plan Thank you very much, Dr. Lund, for this consult. Please call for questions.
--- NOTE | 2020-01-16 15:06 | Progress Note ---
DATE: SUBJECTIVE: Ms. Newton remains in intensive care unit, confused. OBJECTIVE: VITAL SIGNS: Stable, afebrile. HEENT: She is not icteric. NECK: Supple. CHEST: Clear. COR: S1 and S2. ABDOMEN: Soft. LABORATORY DATA: Her white count is 15.1, her hemoglobin is 7.8. IMPRESSION: Acute-on chronic kidney disease. Creatinine is improving. Failure to thrive. Staph aureus bacteremia present on admission. Await echocardiogram. Await endocarditis. Extended-spectrum beta-lactamase urinary tract infection. Continue with meropenem. Continue with vancomycin. Follow level. Increase dose of vancomycin. Obtain echocardiogram. We will check CBC. Recheck blood cultures. MD THUY Arias/MODL /[id number]
--- NOTE | 2020-01-16 15:59 | NUR ---
Nutrition Intervention Note RD Recommendation(s) for Physician: -Recommend to resume tube feeding when medically appropriate Glucerna 1.2 @ 10 mL/hr and advance to goal rate of 55 mL/hr (provides 1584 kcal, 79 g protein) - Water flushes and fluid management per MD. -If pt is expected to be NPO or unable to receive EN for > 5 days, consider TPN - Please check BMP with Mg and Phos daily, replace low lytes as needed- pt at risk for refeeding syndrome. Plan of Care: RD following, monitoring for tolerance and adequacy Nutrition reason for involvement: follow up RD Assessment 01/15: follow up. Chart reviewed. Per nursing note, KUB shows possible small bowel obstruction or ileus; therefore, tube feeding was not started. Per MD note in regards to pts KADEEM, pts creatinine is improving with good urine output and stable electrolytes. Will continue to monitor. 01/13: 79 YOF admitted for AMS, dehydration, and FTT. Pt evaluated today per MST screen. Pt admitted for SNF, no hx available and pt with AMS. Pt discussed during am rounds, per RN pt with wounds on arrival and plan for PEG placement. Pt currently on isolation precautions. TF rec's provided. Chart reviewed. Will continue to monitor. Principal Problems/Diagnoses: AMS, dehydration, failure to thrive PMH: DMII, CKD3, CVA, OA GI: flat, soft, abdomen, last recorded BM 01/15 Skin: very thin and fragile skin with multiple wound areas per wound care note Labs: 01/15: Na 145, K 3.5, BUN 103, Cr 1.52, Glu 160 01/13: Na 153, K 3.9, BUN 148, K 3.47, Gluc 251, POC Gluc 159-226 Meds: vancomycin, heparin, meropenem, norepinephrine, zofran, Sodium bicarbonate @ 80 mL/hr Ht: 62 in Wt: 127 lb BMI: 23.2 kg/m2 IBW: 110 lb Malnutrition Evaluation (01/14/20) Unable to assess. Will re-evaluate at follow-up as appropriate. CHARLES, no SNF records, pt with AMS Energy intake: CHARLES Weight loss: CHARLES Fat loss: CHARLES Muscle loss: CHARLES Supporting Evidence: Fluid accumulation: unable to evaluate Functional Status: unable to evaluate Nutrition Prescription (Diet Order): Glucerna 1.2 @ 50 mL/hr on hold Estimated Nutritional Needs: 5680-0361 calories/day (25-30 kcal/kg CBW) 58-87 g protein/day (1-1.5 g pro/kg CBW)- adjust per renal function Diet Adequacy: Not meeting calorie needs, Not meeting protein needs Diet Tolerance: tolerance pending Diet Education Needs Assessment: Diet education not indicated, patient on temporary/transition diet. Nutrition Care Level: high Nutrition Diagnosis: Inadequate energy and protein intake related to current medical conditions (failure to thrive, AMS, hx of CVA) as evidenced by dehydration, possible malnutrition, and pending feeding tube placement Goal: Patient will meet 75-100% of estimated needs by follow up Progress: not progressing Interventions: - Composition, Rate, Route, IVF, Recommended Modifications Monitoring/Evaluation: - Total energy intake, Total protein intake, Formula/Solution, Weight change Signed: Ruthy Ladd RD, LD
[2020-01-17] VITALS (29 sets, daily range): BP systolic 33–124; BP diastolic 16–92
[2020-01-17] MEDS: MEROPENEM 500MG/ NS 50ML 50 ML IV SCH ×2 (04:08→15:42)
[2020-01-17 06:23] LABS: BASOPHILS # (AUTO) 0.1 (0.0-0.1); BASOPHILS % 0.5 % (0.0-1.0); EOSINOPHILS % 0.1 % (0.0-6.0); HEMATOCRIT 26.3 % (34.2-44.1); HEMOGLOBIN 8.2 g/dL (12.0-16.0); LYMPHOCYTES % 16.1 % (18.0-39.1); MEAN CORPUSCULAR HEMOGLOBIN 28.9 pg (28-32); MEAN CORPUSCULAR HGB CONC 31.2 g/dL (31-35); MEAN CORPUSCULAR VOLUME 92.6 fL (81-99); MONOCYTES # (AUTO) 0.3 (0.2-0.8); MONOCYTES % 2.2 % (4.4-11.3); NEUTROPHILS % 79.7 % (38.7-80.0); PLATELET COUNT 146 x10e3/uL (140-360); RED BLOOD COUNT 2.84 x10e6/uL (3.6-5.1); RED CELL DISTRIBUTION WIDTH 18.2 % (11.7-14.4)
[2020-01-17 06:42] LABS: ALBUMIN 1.5 g/dL (3.5-5.0); ALBUMIN/GLOBULIN RATIO 0.5 (0.8-2.0); ANION GAP 16.7 mmol/L (8-16); CALCIUM 7.6 mg/dL (8.4-10.2); CREATININE, SERUM 1.1 mg/dL (0.57-1.11)
[2020-01-17 06:44] LABS: POTASSIUM 2.7 mmol/L (3.5-5.1)
[2020-01-17] MEDS: INSULIN REGULAR, HUMAN 100 UNIT/1 ML 3ML VIAL SQ SCH ×4 (07:12→19:55)
[2020-01-17] MEDS: VANCOMYCIN 1GM/NS 250 ML 250 ML IV SCH (08:10)
[2020-01-17] MEDS: BALSAM PERU/CASTOR OIL 60 GM OINT...G. TP SCH (08:12)
[2020-01-17] MEDS: HEPARIN SOD (PORCINE) 5,000 UNIT/ML VIAL SC SCH ×2 (08:12→19:54)
--- NOTE | 2020-01-17 08:36 | Diagnostic Imaging Report ---
Examination: Single AP view of the chest. COMPARISON: January 15, 2020 INDICATION: Pneumonia DISCUSSION: Lines/tubes: Left IJ catheter, stable. Enteric tube with distal aspect in the fundus. Lungs: Age-related interstitial change. Left midlung peripheral opacity. Pleura: Small bilateral effusions. Heart and mediastinum: The heart and the mediastinum are unremarkable. Bones and soft tissues: No acute bony abnormalities. IMPRESSION: 1. Left midlung peripheral opacity, stable. Signed by: Dr. Ethan Mcdonough M.D. on 01/17/2020 8:33 AM
[2020-01-17] MEDS ORDERED: POTASSIUM CHLORIDE 20MEQ/100ML 300 ML IV ONE (10:45)
--- NOTE | 2020-01-17 11:50 | Progress Note ---
DATE: 01/17/2020 CHIEF COMPLAINT/HISTORY OF PRESENT ILLNESS: This is an 79-year-old [place] woman, whose primary treating diagnosis is sepsis secondary to MRSA bacteremia, left-sided gram-negative pneumonia, and Proteus mirabilis ESBL urinary tract infection. The patient was admitted with acute renal failure, secondary to acute tubular necrosis. The family yesterday decided to proceed with a do not resuscitate code status. The patient had echocardiogram yesterday, which revealed a left ventricular ejection fraction greater than 70%, but did reveal findings consistent with diastolic heart failure. Echocardiogram, however, did not reveal any obvious valvular vegetations. Blood work today revealed potassium 2.7. BUN and creatinine 65 and 1.1 respectively. The patient's white blood cell count 12,500 with 79% segmenters. Hemoglobin is 8.2 g/dL. REVIEW OF SYSTEMS: As per HPI. PHYSICAL EXAMINATION: GENERAL: She is arousable. She is confused, in mild distress. Her two adult sons are bedside. VITAL SIGNS: Height 5 feet 2 inches, weight 127 pounds, BMI 23. Blood pressure is 100/80, pulse 112, respiratory rate is 18, oxygen saturation 99% on room air, and temperature 97.5. BMI is 23. INTEGUMENT: Skin is warm and dry. No pallor, jaundice, or diaphoresis. The patient has numerous decubitus ulcers. HEENT: Anicteric sclerae with moist mucous membranes. NECK: Supple. CARDIOVASCULAR: Tachycardic rate and rhythm. LUNGS: The patient has crackles bilaterally. ABDOMEN: Soft, it is slightly distended with hyperactive bowel sounds. EXTREMITIES: No edema or deformity. NEUROLOGICAL: Intact. She is bedbound. HEENT: She has a nasogastric tube in place. DIAGNOSES: 1. Proteus mirabilis Extended spectrum beta-lactamase urinary tract infection. 2. Sepsis, secondary to methicillin-resistant Staphylococcus aureus bacteremia. 3. Left-sided gram-negative pneumonia. 4. Adult failure to thrive. 5. Acute renal failure, secondary to acute tubular necrosis, resolving. 6. Multiple decubitus ulcers. 7. Anemia, secondary to chronic disease. 8. Parkinson disease (advanced). 9. Severe protein calorie malnutrition. 10. Hypokalemia. PLAN: 1. We will honor the patient's do not resuscitate code status. 2. I spoke at length with the patient's two adult sons in regard to end of life issues. 3. Family did agree to pursue palliative treatment from hospice care. 4. We will stop intravenous norepinephrine. 5. Continue intravenous antibiotics at this time. 6. Continue intravenous fluids at this time also. 7. Pain control. 8. Replete potassium level. I spent of 35 minutes in the care of this patient. MD BARBARA Ordonez/SHELBY /[id number] MTDD
--- NOTE | 2020-01-17 12:20 | NUR ---
CALL TO GISELLE IN THE ICU REGARDING FAMILY REQUEST TO SPEAK W CM ABOUT HOSPICE CHOICE. STATES THE FAMILY WAS NOT HERE. STATES THE SON, NATHALIE JOHNSON @ [phone], REQUESTED TO BE CALLED REGARDING HOSPICE CHOICE. STATES THEY [facility]ED [facility]. INFORMED CLARA DESAI CM WILL CALL THE SON. CALL TO NATHALIE. NO ANSWER. LEFT VM W CONTACT INFO.
[2020-01-17] MEDS: SODIUM BICARBONATE 8.4% 150 ML in STERILE WATER IV SOLN 1,000 ML IV SCH (16:56)
--- NOTE | 2020-01-17 19:13 | NUR ---
Dr. Jose De Jesus vera, aware of pt's BP of 40/25 and on levophed. No new orders at this time. Plan is to send patient home on hospice tomorrow.
--- NOTE | 2020-01-17 19:19 | NUR ---
Pulmonary and Critical Care Medicine DATE 01/17/2020 SUBJECTIVE: bicarbonate drip iv levophed 15 mcg/ family is leaning on hospice poor awareness again REVIEW OF SYSTEMS: Cannot get reliably. AMS OBJECTIVE: VITAL SIGNS: Vital signs noted, reviewed per the chart record. GENERAL: poor appearance, chronic, in bed, pale HEENT: Normocephalic and atraumatic. NECK: Supple. Throat midline. LUNGS: Bilateral air entry with shallow breathing, rare rhonchi. CARDIOVASCULAR: S1, S2. No murmurs, rubs, or gallops. ABDOMEN: Soft, no definite discomfort significant, mild nonspecific discomfort? EXTREMITIES: No clubbing. No cyanosis. trace edema INTEGUMENT: No rash. A few bruises. LABORATORY DATA: k 3.5, cr 1.52, wbc 15, hct 24, plt 153 IMPRESSION AND PLAN: 1. Altered mental status, toxic metabolic encephalopathy. 2. Acute kidney failure. 3. Severe sepsis/multiorgan dysfunction syndrome. --Proteus UTI ESBL present on admit. --MRSA bacteremia 4. Failure to thrive. 5. Hx CVA, radiographic. 6. Hypertonic/spastic left hemiparesis. 7. Hypertension. 8. Diabetes. 9. Anemia by history. 10. Osteoarthritis. 12. Parkinsons 13. multiple decubiti, NOS. present on admit. DTI and stage IIs 14. shock, septic Continue antibiotics per ID Continue serial airway evaluations due to hypoxemia. ?better Aspiration precautions. start tube feeding when ok with GI, glucerna DVT prophylaxis Renal resuscitation continue Family to decide further on advance directives/ care plan. they are considering hospice Thank you very much, Dr. Lund, for this consult. Please call for questions.
--- NOTE | 2020-01-17 19:33 | NUR ---
Called Dr. Moreno to clarify that he wanted to keep Levo off. Pt's pressure is 33/23. Ordered to keep levo off and to let patient pass. Pt was supposed to go to hospice tomorrow and is DNR. Family notified.
--- NOTE | 2020-01-17 19:37 | NUR ---
Son notified of pt's dropping blood pressure and that she may tonight. Son stated that he is calling their family physician and he will call back.
[2020-01-18] VITALS (19 sets, daily range): BP systolic 37–131; BP diastolic 16–68
[2020-01-18] MEDS: MEROPENEM 500MG/ NS 50ML 50 ML IV SCH (04:00)
[2020-01-18 06:30] LABS: BASOPHILS % 0.4 % (0.0-1.0); EOSINOPHILS % 0.4 % (0.0-6.0); HEMATOCRIT 26.3 % (34.2-44.1); HEMOGLOBIN 8.1 g/dL (12.0-16.0); LYMPHOCYTES # (AUTO) 1.6 (1.0-3.2); LYMPHOCYTES % 16.6 % (18.0-39.1); MEAN CORPUSCULAR HEMOGLOBIN 29.1 pg (28-32); MEAN CORPUSCULAR HGB CONC 30.8 g/dL (31-35); MEAN CORPUSCULAR VOLUME 94.6 fL (81-99); MONOCYTES # (AUTO) 0.4 (0.2-0.8); MONOCYTES % 3.6 % (4.4-11.3); NEUTROPHILS # (AUTO) 7.5 (2.1-6.9); NEUTROPHILS % 77.7 % (38.7-80.0); PLATELET COUNT 146 x10e3/uL (140-360); RED BLOOD COUNT 2.78 x10e6/uL (3.6-5.1)
[2020-01-18 06:49] LABS: ALANINE AMINOTRANSFERASE 26 IU/L (0-55); ALBUMIN 1.4 g/dL (3.5-5.0); ALBUMIN/GLOBULIN RATIO 0.5 (0.8-2.0); ALKALINE PHOSPHATASE 149 IU/L (40-150); BLOOD UREA NITROGEN 48 mg/dL (7-26); BUN/CREATININE RATIO 56 (6-25); CALCIUM 7.2 mg/dL (8.4-10.2); CHLORIDE 95 mmol/L (98-107); CREATININE, SERUM 0.85 mg/dL (0.57-1.11); EST GLOMERULAR FILTRATION RATE > 60 ML/MIN (60-); GLUCOSE 86 mg/dL (74-118); SODIUM 150 mmol/L (136-145)
[2020-01-18 06:52] LABS: CARBON DIOXIDE 43 mmol/L (22-29)
[2020-01-18] MEDS: INSULIN REGULAR, HUMAN 100 UNIT/1 ML 3ML VIAL SQ SCH (07:30)
[2020-01-18] MEDS: VANCOMYCIN 1GM/NS 250 ML 250 ML IV SCH (08:02)
[2020-01-18] MEDS: BALSAM PERU/CASTOR OIL 60 GM OINT...G. TP SCH (08:03)
[2020-01-18] MEDS: HEPARIN SOD (PORCINE) 5,000 UNIT/ML VIAL SC SCH (08:03)
--- NOTE | 2020-01-18 08:10 | NUR ---
CALLED AND SPOKE WITH SON NATHALIE JOHNSON [phone] HE DOES WANT [facility] BUT IF PT IS STABLE WANTS MOVED TO [facility] UNDER A DOCTOR OF HIS CHOICE. WILL HAVE [facility] REP CONTACT HIM
--- NOTE | 2020-01-18 08:32 | NUR ---
FAXED CLINICALS TO [facility] [phone], FILED CHOICE IN CHART
--- NOTE | 2020-01-18 12:41 | NUR ---
Pulmonary and Critical Care Medicine DATE 01/18/2020 SUBJECTIVE: pt removed off iv bicarbonate drip BP still low 1 L/min oxygen by NC 96% saturation by NC murphy in place, UOP REVIEW OF SYSTEMS: Cannot get reliably. AMS OBJECTIVE: VITAL SIGNS: Vital signs noted, reviewed per the chart record. GENERAL: poor appearance, chronic, in bed, pale HEENT: Normocephalic and atraumatic. NECK: Supple. Throat midline. LUNGS: Bilateral air entry with shallow breathing, rare rhonchi. CARDIOVASCULAR: S1, S2. No murmurs, rubs, or gallops. ABDOMEN: Soft, no definite discomfort significant, mild nonspecific discomfort? EXTREMITIES: No clubbing. No cyanosis. trace edema INTEGUMENT: No rash. A few bruises. LABORATORY DATA: k 3.0, hco3 43, cr 0.86. wbc 10, hct 26, plt 146 IMPRESSION AND PLAN: 1. Altered mental status, toxic metabolic encephalopathy. 2. Acute kidney failure. 3. Severe sepsis/multiorgan dysfunction syndrome. --Proteus UTI ESBL present on admit. --MRSA bacteremia 4. Failure to thrive. 5. Hx CVA, radiographic. 6. Hypertonic/spastic left hemiparesis. 7. Hypertension. 8. Diabetes. 9. Anemia by history. 10. Osteoarthritis. 12. Parkinsons 13. multiple decubiti, NOS. present on admit. DTI and stage IIs 14. shock, septic Abx stopped Off pressors, stay off Transfer patient to hospice today Family decided for heavy palliation/hospice Continue to offer supportive care Thank you very much, Dr. Lund, for this consult. Please call for questions.
--- NOTE | 2020-01-18 14:30 | NUR ---
Dr. Kameron Lund spoke with pt's son about treatment plan and code status. Dr. Kameron Lund ordered medications be discontinued at this time and orders for medical surgical floor. Son updated on pt's vital signs. Plans made for hospice. Report given to Wang ELIZABETH. Pt transferred to room 205.
--- NOTE | 2020-01-18 14:30 | NUR ---
PT ARRIVED FROM ICU. PT IS ON HOSPICE AND DNAR PER TRANSFER REPORT. PT IS AAOX0. EYES ARE CLOSED. RESPIRATIONS ARE EVEN AND NON LABORED. BED ALARM IS ON. BED IS LOW AND LOCKED. SIDE RAILS X2.
--- NOTE | 2020-01-18 14:40 | NUR ---
PAGED DR. Kameron HOLDEN AND INFORMED PT ARRIVAL TO THE UNIT FROM ICU. HOSPICE AND DNAR PER DR. Kameron HOLDEN. IS AWARE NO MEDS FOR THE PT.
--- NOTE | 2020-01-18 15:00 | NUR ---
PT CAME WITH NG TUBE IN PLACE. PT HAS MULTIPLE WOUNDS. PRESSURE ULCERS ON SACRUM AND LEFT BUTTOCKS. WOUNDS ARE CLEANED, VENELEX OINTMENT AND ALLEVYN PAD APPLIED. HEEL PROTECTORS ARE ON
--- NOTE | 2020-01-18 15:57 | NUR ---
BJECTIVE: VITAL SIGNS: Vital signs noted, reviewed per the chart record. GENERAL: poor appearance, chronic, in bed, pale HEENT: Normocephalic and atraumatic. NECK: Supple. Throat midline. LUNGS: Bilateral air entry with shallow breathing, rare rhonchi. CARDIOVASCULAR: S1, S2. No murmurs, rubs, or gallops. ABDOMEN: Soft, no definite discomfort significant, mild nonspecific discomfort? EXTREMITIES: No clubbing. No cyanosis. trace edema INTEGUMENT: No rash. A few bruises. LABORATORY DATA: k 3.0, hco3 43, cr 0.86. wbc 10, hct 26, plt 146 IMPRESSION AND PLAN: 1. Altered mental status, toxic metabolic encephalopathy. 2. Acute kidney failure. 3. Severe sepsis/multiorgan dysfunction syndrome. --Proteus UTI ESBL present on admit. --MRSA bacteremia 4. Failure to thrive. 5. Hx CVA, radiographic. 6. Hypertonic/spastic left hemiparesis. 7. Hypertension. 8. Diabetes. 9. Anemia by history. 10. Osteoarthritis. 12. Parkinsons 13. multiple decubiti, NOS. present on admit. DTI and stage IIs 14. shock, septic Abx stopped Off pressors, stay off Transfer patient to hospice today Family decided for heavy palliation/hospice Continue to offer supportive care [id number]
--- NOTE | 2020-01-18 17:55 | NUR ---
NG TUBE REMOVED PER THE ORDER BY DR. Kameron HOLDEN. PT TOLERATED WELL. NO DISTRESS NOTED. PT IS RESTING ON BED.
--- NOTE | 2020-01-18 19:05 | NUR ---
BEDSIDE SHIFT REPORT GIVEN TO THE STREET CONTRACTOR RN. PT DENIED FURTHER NEEDS.
--- NOTE | 2020-01-18 19:10 | NUR ---
Patient visited in room during nursing rounds. Patient alert and oriented x0. Pt is aphasic and is on hospice-type of care. Pt is bedridden and has no meds ordered. Diet is NPO. Plan is for possible transfer to hospice facility tomorrow. V/S still being taken Qshift. Both arms and legs are notably edematous. Salmon catheter in place for comfort care. Multiple wounds noted: Stage 2 ulcer wounds on sacrum and left buttock, DTI on both heels (with heel support on). Bed alarm active.
--- NOTE | 2020-01-18 19:25 | Progress Note ---
DATE: HISTORY OF PRESENT ILLNESS: Ms. Newton is otherwise in ICU, comfortable. OBJECTIVE: VITAL SIGNS: Stable. HEENT: She is not icteric. NECK: Supple. CHEST: Few crackles. COR: S1 and S2. No S3, S4, or murmurs. ABDOMEN: Soft. Bowel sounds present. No tenderness. EXTREMITIES: No edema. PSYCH: Remains confused. IMPRESSION: Sepsis on admission, methicillin-resistant Staphylococcus aureus bacteremia. The patient is going for hospice. Discussed with the medical team. Discussed with her primary care physician as an outpatient at length. Agree with above plan. We will sign off. MD THUY Arias/SHELBY /[id number]
[2020-01-19 00:56] VITALS: BP 102/54
[2020-01-19 05:28] VITALS: BP 105/57
--- NOTE | 2020-01-19 07:00 | NUR ---
BEDSIDE SHIFT REPORT RECEIVED FROM THE MOTOR LODGE CLERK RN. PT IS ALERT. RESPIRATIONS ARE EVEN AND NON LABORED. BED IS LOW AND LOCKED. SIDE RAILS X2. BED ALARM IS ON.
[2020-01-19 08:00] VITALS: BP 94/55
[2020-01-19] MEDS: BALSAM PERU/CASTOR OIL 60 GM OINT...G. TP SCH (08:29)
[2020-01-19 08:46] VITALS: BP 94/55
--- NOTE | 2020-01-19 09:40 | NUR ---
SPOKE WITH HOSPICE REP, FAMILY HAS NOT MET WITH THEM YET AND HAS NOT MADE ATTEMPT TO MAKE A AVAILABLE TIME TO MEET. STATES DOESNT THINK SHE WILL LEAVE HERE SO DOESNT NEED TO [place] TO MEET THEM.
--- NOTE | 2020-01-19 10:30 | NUR ---
SPOKE WITH HEART TO HEART REP, SHE STATES HAS BED READY AT [facility] BUT THE SON STILL HAS NOT MET WITH THEM, SPOKE WITH DR HOLDEN AND CALLED TO SPEAK WITH SON, LEFT VOICE MAIL TO RETURN CALL SO DR HOLDEN COULD GIVE UPDATE.
--- NOTE | 2020-01-19 11:15 | NUR ---
DR. Roque HOLDEN AT BEDSIDE.
[2020-01-19 11:53] VITALS: BP 116/51
--- NOTE | 2020-01-19 11:58 | Progress Note ---
DATE: SUBJECTIVE: The patient is seen and evaluated. Available labs and notes reviewed. Attending note noted. REVIEW OF SYSTEMS: Unable to obtain review of systems secondary to the patient's medical condition. PHYSICAL EXAMINATION: VITAL SIGNS: Temperature 96.9, pulse 115, respiration 14, blood pressure 94/55. GENERAL: Comfortable in bed. No interaction with me. CV: S1, S2. CHEST: Equal expansion, decreased breath sounds. No acute distress. ABDOMEN: Soft and positive bowel sounds. HEENT: Moist. No pallor. No JVD. EXTREMITIES: No cyanosis. MEDICATIONS: The patient is off all medications. LABORATORY STUDIES: No new laboratory studies available. No new toxicology available. No new serology available. MICROBIOLOGY: No new microbiology available. RADIOLOGY STUDIES: No new radiology studies available. ASSESSMENT AND PLAN: 1. Methicillin-resistant Staphylococcus aureus bacteremia on admission. 2. Failure to thrive. 3. Acute on chronic kidney disease. 4. Urinary tract infection with Proteus. 5. Anemia. 6. Obstructive gas pattern per KUB. 7. Poor prognosis. 8. The patient is clinically in no acute distress. Plan is to go with hospice. Medications stopped. Discussed with Dr. Hdz. ID signs off. Thank you for this dictation. Please refer to chart for more information. Dictated by Tahir Alba PA-C (Al) Baljit Hdz MD /MODL /[id number]
--- NOTE | 2020-01-19 12:13 | NUR ---
Pulmonary and Critical Care Medicine DATE 01/19/2020 SUBJECTIVE: murphy in place patient with low k appears in poor condition bp mildly higher REVIEW OF SYSTEMS: Cannot get reliably. AMS OBJECTIVE: VITAL SIGNS: Vital signs noted, reviewed per the chart record. GENERAL: poor appearance, chronic, in bed, pale HEENT: Normocephalic and atraumatic. NECK: Supple. Throat midline. LUNGS: Bilateral air entry with shallow breathing, rare rhonchi. CARDIOVASCULAR: S1, S2. No murmurs, rubs, or gallops. ABDOMEN: Soft, no definite discomfort significant, mild nonspecific discomfort? EXTREMITIES: No clubbing. No cyanosis. trace edema INTEGUMENT: No rash. A few bruises. LABORATORY DATA: k 3.0, hco3 43, cr 0.86. wbc 10, hct 26, plt 146 IMPRESSION AND PLAN: 1. Altered mental status, toxic metabolic encephalopathy. 2. Acute kidney failure. 3. Severe sepsis/multiorgan dysfunction syndrome. --Proteus UTI ESBL present on admit. --MRSA bacteremia 4. Failure to thrive. 5. Hx CVA, radiographic. 6. Hypertonic/spastic left hemiparesis. 7. Hypertension. 8. Diabetes. 9. Anemia by history. 10. Osteoarthritis. 12. Parkinsons 13. multiple decubiti, NOS. present on admit. DTI and stage IIs 14. shock, septic Abx stopped, wbc normalized finally Off pressors, BP better Transfer patient to hospice ok from pulmonary point of view. patient is very ill Continue to offer supportive care Thank you very much, Dr. Lund, for this consult. Please call for questions.
--- NOTE | 2020-01-19 15:25 | NUR ---
[facility] TO D/C PT PER DR. HOLDEN. TRANSFER PT TO [facility] PER THE DR. Ortiz/Carolann THE IV'S PER THE
--- NOTE | 2020-01-19 15:30 | NUR ---
TRANSFER REPORT GIVEN TO WILBERT ELIZABETH. PT IS TRANSFERRING TO [facility].
--- NOTE | 2020-01-19 15:35 | NUR ---
PT NEED OUT OF HOSPITAL DNR BEFORE TRANSFER, PER WILBERT ELIZABETH FROM [facility]. INFORMED THE SAME TO [employer]. [facility] WILL FAX THE PAPER WORK SHORTLY PER THE [employer]. INFORMED THE SAME TO WILBERT ELIZABETH [facility].
[2020-01-19 16:00] VITALS: BP 130/30
--- NOTE | 2020-01-19 16:05 | NUR ---
LEFT IJ IV REMOVED. TIP INTACT. PRESSURE DRESSING APPLIED FOR 5 MINS. PT TOLERATED WELL. RIGHT EJ IV REMOVED. TIP INTACT. DRESSING APPLIED.
--- NOTE | 2020-01-19 16:46 | NUR ---
Nutrition Intervention Note RD Recommendation(s) for Physician: -If aggressive care is desired, consult Nutrition for recommendations. Plan of Care: RD following, monitoring for tolerance and adequacy - Hospice Nutrition reason for involvement: follow up RD Assessment 01/18: Follow up. Pt transferred out of the ICU, prognosis poor per MD notes. Pt continues with obstructive gas pattern per MD notes, remains NPO and no TF initiated. Pt transitioning to hospice with SNF, pending discharge. No aggressive care at this time. Will continue to monitor. 01/15: follow up. Chart reviewed. Per nursing note, KUB shows possible small bowel obstruction or ileus; therefore, tube feeding was not started. Per MD note in regards to pts KADEEM, pts creatinine is improving with good urine output and stable electrolytes. Will continue to monitor. 01/13: 79 YOF admitted for AMS, dehydration, and FTT. Pt evaluated today per MST screen. Pt admitted for SNF, no hx available and pt with AMS. Pt discussed during am rounds, per RN pt with wounds on arrival and plan for PEG placement. Pt currently on isolation precautions. TF rec's provided. Chart reviewed. Will continue to monitor. Principal Problems/Diagnoses: AMS, dehydration, failure to thrive PMH: DMII, CKD3, CVA, OA GI: LBM 01/18- liquid stool Skin: very thin and fragile skin with multiple wound areas per wound care note Labs: 01/18: Na 150, K 3, BUN 38, Cr 0.85, Gluc 86 01/15: Na 145, K 3.5, BUN 103, Cr 1.52, Glu 160 01/13: Na 153, K 3.9, BUN 148, K 3.47, Gluc 251, POC Gluc 159-226 Meds: no active meds per current MAR 01/18 Ht: 62 in Wt: 127 lb BMI: 23.2 kg/m2 IBW: 110 lb Malnutrition Evaluation (01/14/20) Unable to assess. Will re-evaluate at follow-up as appropriate. CHARLSE, no SNF records, pt with AMS Energy intake: CHARLES Weight loss: CHARLES Fat loss: CHARLES Muscle loss: CHARLES Supporting Evidence: Fluid accumulation: unable to evaluate Functional Status: unable to evaluate Nutrition Prescription (Diet Order): NPO Estimated Nutritional Needs: [id number] calories/day (25-30 kcal/kg CBW) 58-87 g protein/day (1-1.5 g pro/kg CBW)- adjust per renal function Diet Adequacy: Not meeting calorie needs, Not meeting protein needs Diet Tolerance: tolerance pending Diet Education Needs Assessment: Diet education not indicated, patient on temporary/transition diet. Nutrition Care Level: Low (per hospice status) Nutrition Diagnosis: Inadequate energy and protein intake related to current medical conditions (failure to thrive, AMS, hx of CVA) as evidenced by dehydration, possible malnutrition, and pending feeding tube placement Goal: Patient will meet 75-100% of estimated needs by follow up Progress: not progressing Interventions: - Composition, Rate, Route, Recommended Modifications Monitoring/Evaluation: - Total energy intake, Total protein intake, Formula/Solution, Weight change Signed: Felicia Castellanos RD, LD, CNSC
--- NOTE | 2020-01-19 17:08 | NUR ---
D/C PT WITH [facility] PER DR. HOLDEN.
--- NOTE | 2020-01-19 17:40 | NUR ---
PT TRANSFERRED SAFELY [facility]IA [facility]. PT WAS ALERT. NO DISTRESS NOTED. RESPIRATIONS ARE EVEN AND NON LABORED.
== END 2020-01-19 17:41 | disposition hospice, inpatient (51) | DRG 871 ==
LOC: ER 14:09 → ERHOLD 16:53 → ICU 01-14 03:45 → MED/SURG2 01-18 14:36
PROC: 05HN33Z Insertion of Infusion Device into Left Internal Jugular Vein, Percutaneous Approach (ICD-10-PCS; principal; 2020-01-14)
PROC: B544ZZA Ultrasonography of Left Jugular Veins, Guidance (ICD-10-PCS; 2020-01-14)
PROC: 3E033XZ Introduction of Vasopressor into Peripheral Vein, Percutaneous Approach (ICD-10-PCS; 2020-01-14)
DX: A41.02 Sepsis due to Methicillin resistant Staphylococcus aureus (principal); G92 Toxic encephalopathy; N17.0 Acute kidney failure with tubular necrosis; E43 Unspecified severe protein-calorie malnutrition; J15.6 Pneumonia due to other Gram-negative bacteria; R65.21 Severe sepsis with septic shock; N10 Acute pyelonephritis; G81.14 Spastic hemiplegia affecting left nondominant side; E87.2 Acidosis; Z16.12 Extended spectrum beta lactamase (ESBL) resistance; K56.609 Unspecified intestinal obstruction, unspecified as to partial versus complete obstruction; I13.0 Hypertensive heart and chronic kidney disease with heart failure and stage 1 through stage 4 chronic kidney disease, or unspecified chronic kidney disease; I50.30 Unspecified diastolic (congestive) heart failure; E86.0 Dehydration; R62.7 Adult failure to thrive; Z68.22 Body mass index [BMI] 22.0-22.9, adult; D64.9 Anemia, unspecified; Z11.59 Encounter for screening for other viral diseases; Z83.3 Family history of diabetes mellitus; Z82.49 Family history of ischemic heart disease and other diseases of the circulatory system; Z86.73 Personal history of transient ischemic attack (TIA), and cerebral infarction without residual deficits; E87.5 Hyperkalemia; N18.3 Chronic kidney disease, stage 3 (moderate); E11.22 Type 2 diabetes mellitus with diabetic chronic kidney disease; G20 Parkinson's disease; F02.80 Dementia in other diseases classified elsewhere, unspecified severity, without behavioral disturbance, psychotic disturbance, mood disturbance, and anxiety; L89.106 Pressure-induced deep tissue damage of unspecified part of back; L89.156 Pressure-induced deep tissue damage of sacral region; L89.226 Pressure-induced deep tissue damage of left hip; B96.4 Proteus (mirabilis) (morganii) as the cause of diseases classified elsewhere; D63.8 Anemia in other chronic diseases classified elsewhere; Z66 Do not resuscitate; Z79.82 Long term (current) use of aspirin; Z79.4 Long term (current) use of insulin
CPT/HCPCS: 36415; 51700; 70450; 71045; 74018; 74019; 76770; 80048; 80053; 80202; 81001; 82550; 82553; 82948; 83605; 83735; 83880; 84484; 84550; 85025; 85610; 85730; 87040; 87071; 87086; 87186; 87205; 87635; 93005; 93306; 99251; 99285; J0692; J0696; J1644; J1817; J3370; J3480; J7030; J7070; J7799; P9045